=== PATIENT | female | born 1995 | race Caucasian/White ===

== ENCOUNTER 2018-12-23 18:33 | Outpatient (CLI) | payer OTHER ==
[~2018-12-23 18:33] MED LIST: FOLIC ACID1 MG PO; PRENATAL GUMMI1 EACH PO
== END 2018-12-24 11:01 | disposition home or self-care (01) ==
LOC: OBS/DEL 18:33
DX: O26.892 Other specified pregnancy related conditions, second trimester (principal); R10.2 Pelvic and perineal pain; M54.89 Other dorsalgia; Z34.82 Encounter for supervision of other normal pregnancy, second trimester

== ENCOUNTER 2019-03-12 10:07 | Outpatient (CLI) | payer OTHER | END 2019-03-13 00:30 | disposition still patient (30) | LOC: OBS/DEL 10:07 | DX: O60.03 Preterm labor without delivery, third trimester (principal); Z34.83 Encounter for supervision of other normal pregnancy, third trimester ==

== ENCOUNTER 2019-03-13 00:30 | Inpatient (IN) | payer OTHER | END 2019-03-16 14:36 | disposition HB | DRG 783 | LOC: OB/GYN 00:30 → LDR 00:30 → O/R 14:17 → OB/GYN 16:09 | PROVIDERS: ADMIT Obstetrics & Gynecology | PROC: 0UL70ZZ Occlusion of Bilateral Fallopian Tubes, Open Approach (ICD-10-PCS; 2019-03-13) | PROC: 4A0HXFZ Measurement of Products of Conception, Cardiac Rhythm, External Approach (ICD-10-PCS; 2019-03-13) | PROC: 10D00Z1 Extraction of Products of Conception, Low, Open Approach (ICD-10-PCS; principal; 2019-03-13 14:15) | DX: O82 Encounter for cesarean delivery without indication (principal); O60.14X0 Preterm labor third trimester with preterm delivery third trimester, not applicable or unspecified; O45.8X3 Other premature separation of placenta, third trimester; Z37.0 Single live birth; Z3A.35 35 weeks gestation of pregnancy; Z30.2 Encounter for sterilization ==

== ENCOUNTER 2019-10-15 23:00 | Emergency (ER) | payer OTHER ==
[~2019-10-15] VITALS: Ht 162.6 cm; Wt 66.7 kg
== END 2019-10-16 01:16 | disposition left against medical advice (07) ==
LOC: ER 23:00
DX: Z53.20 Procedure and treatment not carried out because of patient's decision for unspecified reasons (principal)